=== PATIENT | male | born 1950 | race Caucasian/White ===

== ENCOUNTER → 2018-02-27 | Outpatient (CLI) | payer OTHER ==
--- NOTE | 2018-02-27 11:55 | PCVCIMAG ---
APPROVED REPORT Study performed: 02/27/2018 08:17:20 EXAM: Comprehensive 2D, Doppler, and color-flow Echocardiogram Patient Location: Echo lab Status: routine BSA: 1.93 HR: 67 bpmBP: 102/56 mmHg Rhythm: NSR Other Information Study Quality: Good Risk Factors: Cardiac Risk Factors: Hyperlipidemia Indications Pre-Op Elevated CA Score 2D Dimensions IVSd: 10.84 (7-11mm)LVOT Diam: 20.00 (18-24mm) LVDd: 44.45 mm PWd: 11.26 (7-11mm)Ascending Ao: 30.37 (22-36mm) LVDs: 27.30 (25-40mm) Left Atrium: 34.53 (27-40mm) Aortic Root: 28.75 mm LV Single Plane 4CH: 60.60 % LV Single Plane 2CH: 68.02 % Biplane EF: 62.6 % Volumes Left Atrial Volume (Systole) Single Plane 4CH: 42.42 mLSingle Plane 2CH: 49.30 mL LA ESV Index: 26.00 mL/m2 Aortic Valve AoV Peak Garett.: 1.39 m/s AO Peak Gr.: 7.68 mmHgLVOT Max P.50 mmHg LVOT Max V: 0.93 m/s SHARON Vmax: 2.15 cm2 Mitral Valve E/A Ratio: 1.3 MV Decel. Time: 189.67 ms MV E Max Garett.: 1.03 m/s MV A Garett.: 0.78 m/s IVRT: 65.74 ms TDI E/Lateral E': 12.88E/Medial E': 12.88 Medial E' Garett.: 0.08 m/s Lateral E' Garett.: 0.08 m/s Pulmonary Valve PV Peak Garett.: 1.22 m/sPV Peak Gr.: 5.93 mmHg SD End Vmax: 0.89 m/s Pulmonary Vein P Vein S: 0.48 m/sP Vein A: 0.29 m/s P Vein D: 0.35 m/sP Vein A Dur.: 107.3 msec P Vein S/D Ratio: 1.37 Tricuspid Valve TR Peak Garett.: 2.72 m/sRAP Estimate: 7.00 mmHg TR Peak Gr.: 29.50 mmHg PA Pressure: 37.00 mmHg Left Ventricle The left ventricle is normal size. There is normal LV segmental wall motion. Borderline concentric left ventricular hypertrophy. Left ventricular systolic function is normal. The left ventricular ejection fraction is within the normal range. LVEF is 65%. The left ventricular diastolic function is normal. Right Ventricle The right ventricle is normal size. The right ventricular systolic function is normal. Atria The left atrium size is normal. Right atrium is at the upper limits of normal. Aortic Valve The aortic valve is normal in structure. Mild aortic regurgitation. There is no aortic valvular stenosis. Mitral Valve The mitral valve is normal in structure. Mild mitral regurgitation. No evidence of mitral valve stenosis. Tricuspid Valve The tricuspid valve is normal in structure. Mild to moderate tricuspid regurgitation.Pulmonary artery pressure is 37 mmHg. Pulmonic Valve The pulmonary valve is normal in structure. Mild pulmonic regurgitation. Great Vessels The aortic root is normal in size. IVC is normal in size and collapses >50% with inspiration. Pericardium There is no pericardial effusion. <Conclusion> The left ventricle is normal size. LVEF is 65%. The aortic valve is normal in structure. Mild aortic regurgitation. The mitral valve is normal in structure. Mild mitral regurgitation. The tricuspid valve is normal in structure. Mild to moderate tricuspid regurgitation.Pulmonary artery pressure is 37 mmHg. The pulmonary valve is normal in structure. Mild pulmonic regurgitation. There is no pericardial effusion.
== END | disposition home or self-care (01) ==
LOC: PCVCIMAG 08:28
PROVIDERS: ATTEND Internal Medicine
DX: Z01.810 Encounter for preprocedural cardiovascular examination (principal); I08.3 Combined rheumatic disorders of mitral, aortic and tricuspid valves; E78.5 Hyperlipidemia, unspecified; R93.1 Abnormal findings on diagnostic imaging of heart and coronary circulation
CPT/HCPCS: 93306